=== PATIENT | female | born 1985 | race Caucasian/White ===

== ENCOUNTER 2018-01-22 11:29 | Emergency (ER) | payer MEDICAID, OTHER ==
[~2018-01-22] VITALS: Ht 167.6 cm; Wt 83.0 kg
[2018-01-22 11:32] VITALS: BP 135/76
[2018-01-22] MEDS ORDERED: DEXAMETHASONE 10 MG/ML VIAL IM ONE (12:15)
[2018-01-22] MEDS ORDERED: cefTRIAXone 1,000 MG in LIDOCAINE 1% ***ER ONLY *** 2.1 ML IM ONE (12:15)
[2018-01-22] MEDS ORDERED: ALBUTEROL SULFATE/IPRATROPIU 3 ML SOL IH ONE (12:15)
[2018-01-22] MEDS ORDERED: cefTRIAXone 1,000 MG VIAL ONE (12:47)
[2018-01-22] MEDS ORDERED: LIDOCAINE MPF 1% - **ER/OR** 5 ML ONE (12:47)
[2018-01-22 13:21] LABS: APPEARANCE,URINE SL CLOUDY (CLEAR); BILIRUBIN,URINE NEGATIVE (NEGATIVE); BLOOD, URINE TRACE-L (NEGATIVE); COLOR,URINE YELLOW (YELLOW); LEUKOCYTE ESTERASE ,URINE 2+ (NEGATIVE); NITRITE, URINE NEGATIVE (NEGATIVE); PH,URINE 6.5 (5.0-9.0); UGLUCOSE NEGATIVE (NEGATIVE)
[2018-01-22 13:24] LABS: BARBITURATE, URINE NEG. ng/ml (NEG <=200); BENZODIAZEPINE, URINE NEG. ng/mL (NEG <=200); CANNABINOID, URINE NEG. ng/mL (NEG <=50); COCAINE, URINE NEG. ng/mL (NEG <=300); OPIATE, URINE NEG. ng/mL (NEG <=2000); PHENCYCLIDINE SCREEN,URINE NEG. ng/mL (NEG <=25)
[2018-01-22 13:31] VITALS: BP 135/76
[2018-01-22 14:02] LABS: RBC,URINE 0-5 (RARE) /HPF (0-5); WBC,URINE 6-15 (FEW) /HPF (0-5)
== END 2018-01-22 13:27 | disposition home or self-care (01) ==
LOC: MED 11:29
DX: J45.901 Unspecified asthma with (acute) exacerbation (principal)
CPT/HCPCS: 80305; 81001; 81025; 87086; 94640; 96372; 99284; J0696; J1100; J2001; J7620

== ENCOUNTER 2018-11-10 23:50 | Emergency (ER) | payer OTHER ==
[~2018-11-10] VITALS: Ht 167.6 cm; Wt 83.9 kg
--- NOTE | 2018-11-10 23:50 | NUR ---
PT PRESENTS TO ED WITH LEFT FLANK PAIN 03/18. NON-RADIATING. NO N/V/D. NO CHANGE INURINATION. AFEBRILE. VSS. POSITIONED IN BED FOR COMFORT. ER MD AWARE. CONTINUE TO MONITOR.
[2018-11-10 23:55] VITALS: BP 130/79
--- NOTE | 2018-11-11 | NUR ---
PT AMBULATED TO BED 11. PROVIDED URINE.
[2018-11-11] MEDS ORDERED: KETOROLAC 30 MG/ML VIAL IM ONE (00:45)
[2018-11-11 01:00] LABS: BASOPHILS % (AUTO) 0.3 % (0.0-2.0); EOSINOPHILS # (AUTO) 0.1 K/uL (0-0.4); EOSINOPHILS % (AUTO) 0.6 % (0.0-4.0); HEMATOCRIT 39.6 % (36-48); HEMOGLOBIN 13.3 g/dL (12.0-16.0); LYMPHOCYTES # (AUTO) 1.9 K/uL (2.5-16.5); LYMPHOCYTES % (AUTO) 17.4 % (20.5-51.1); MEAN CORPUSCULAR HEMOGLOBIN 29 pg (27-31); MEAN CORPUSCULAR HGB CONC 34 g/dL (33-37); MEAN CORPUSCULAR VOLUME 86.7 fL (80-94); MONOCYTES # (AUTO) 0.6 K/uL (0.8-1.0); MONOCYTES % (AUTO) 5.7 % (1.7-9.3); NEUTROPHILS # (AUTO) 8.2 K/uL (1.8-7.7); PLATELET COUNT (AUTO) 245 K/uL (140-450); RED BLOOD CELL COUNT(AUTO) 4.56 MIL/uL (4.20-5.40); RED CELL DISTRIBUTION WIDTH 13.5 % (11.6-13.7); WHITE BLOOD COUNT (AUTO) 10.8 K/uL (4.8-10.8)
[2018-11-11 01:24] LABS: APPEARANCE,URINE SL CLOUDY (CLEAR); BILIRUBIN,URINE NEGATIVE (NEGATIVE); BLOOD, URINE 1+ (NEGATIVE); COLOR,URINE YELLOW (YELLOW); LEUKOCYTE ESTERASE ,URINE 2+ (NEGATIVE); NITRITE, URINE NEGATIVE (NEGATIVE); UGLUCOSE NEGATIVE (NEGATIVE)
[2018-11-11 01:25] LABS: ALBUMIN 3.6 g/dL (3.4-5.0); ANION GAP 12.4 (8-16); CARBON DIOXIDE 26.5 mmol/L (21-32); POTASSIUM 3.9 mmol/L (3.5-5.1); TOTAL BILIRUBIN 0.4 mg/dL (0.0-1.0)
[2018-11-11 01:37] LABS: RBC,URINE 0-5 /HPF (0-5)
[2018-11-11] MEDS ORDERED: HYDROcodone/APAP 5/325 MG 1 TAB TAB PO ONE (02:55)
[2018-11-11 04:55] VITALS: BP 103/59
--- NOTE | 2018-11-11 04:55 | NUR ---
DISCHARGE PAPERS PROVIDED. 0/10 PAIN. VSS. NO FLANK PAIN AT THIS TIME. PERSCRIBED KEFLEX, NAPROSYN, AND NORCO. SIDE EFFECTS EXPLAINED. PT VERBALIZED UNDERSTANDING OF DC INSTRUCTIONS. ALL QUESTIONS ANSWERED.
== END 2018-11-11 04:55 | disposition home or self-care (01) ==
LOC: MED 23:50
DX: N83.202 Unspecified ovarian cyst, left side (principal); J45.909 Unspecified asthma, uncomplicated
CPT/HCPCS: 36415; 74176; 76856; 80053; 81001; 81025; 85025; 87086; 93976; 96372; 99284; J1885; Q0092

== ENCOUNTER 2019-03-21 08:27 | Emergency (ER) | payer OTHER ==
[~2019-03-21] VITALS: Ht 167.6 cm; Wt 78.6 kg
[2019-03-21 08:33] VITALS: BP 130/73
[2019-03-21] MEDS ORDERED: ETON68IM2 ID (08:38)
--- NOTE | 2019-03-21 08:40 | NUR ---
Patient ambulated to bed 5. RN evaluating patient at bedside.
--- NOTE | 2019-03-21 08:40 | NUR ---
BIB SELF. AAO X4 C/O LEFT LOWER BACK PAIN AND LEFT FLANK PAIN X 4 DAYS. PT STS "UTI PAIN." PT STATES INCREASED URINARY URGENCY. PT DENIES BURNING PAIN UPON URINATION, FEVER, N/VD, ABDOMINAL PAIN. PT STATES 8/10 CONTINUOUS SHARP PAIN TO LEFT LOWER BACK AND LEFT FLANK. PT AMBULATED WITH STEADY GAIT.HOB UP. BED SIDE RAILS UP X1. ON LOW BED POSITION, LOCKED. ER TO EVALUATE PT.
--- NOTE | 2019-03-21 08:47 | NUR ---
Dr. De La O evaluating patient at bedside.
--- NOTE | 2019-03-21 09:07 | NUR ---
Dr. De La O re-evaluating patient at bedside.
[2019-03-21 09:20] VITALS: BP 123/87
--- NOTE | 2019-03-21 09:20 | NUR ---
Patient discharged with v/s stable. Written and verbal after care instructions given and explained. Patient alert, oriented and verbalized understanding of instructions. Ambulatory with steady gait. All questions addressed prior to discharge. ID band removed. Patient advised to follow up with PMD. Rx of CEPHALEXIN , NORCO & AMBIEN given. Patient educated on indication of medication including possible reaction and side effects. Opportunity to ask questions provided and answered.
== END 2019-03-21 09:20 | disposition home or self-care (01) ==
LOC: MED 08:27
DX: N39.0 Urinary tract infection, site not specified (principal); G47.00 Insomnia, unspecified; J45.909 Unspecified asthma, uncomplicated; Z79.899 Other long term (current) drug therapy
CPT/HCPCS: 81002; 81025; 99283

== ENCOUNTER 2019-09-23 18:52 | Emergency (ER) | payer OTHER ==
[~2019-09-23] VITALS: Ht 167.6 cm; Wt 74.8 kg
[~2019-09-23 18:52] MED LIST: ETON68IM2 ID
[2019-09-23 19:03] VITALS: BP 124/76
--- NOTE | 2019-09-23 19:03 | NUR ---
TO BED # 03 AMBULATORY
--- NOTE | 2019-09-23 19:28 | NUR ---
COLLECTED URINE AND SENT TO LAB.
[2019-09-23 19:34] LABS: APPEARANCE,URINE CLEAR (CLEAR); BILIRUBIN,URINE NEGATIVE (NEGATIVE); BLOOD, URINE 1+ (NEGATIVE); COLOR,URINE YELLOW (YELLOW); LEUKOCYTE ESTERASE ,URINE 1+ (NEGATIVE); NITRITE, URINE NEGATIVE (NEGATIVE); UGLUCOSE NEGATIVE (NEGATIVE)
--- NOTE | 2019-09-23 19:38 | NUR ---
33 Y/O FEMALE C/O RT FLANK PAIN X 2DAYS THAT COMES AND GOES. RATES PAIN 8/10 AND DESCRIBES IT STABBING. DENIES ANY V,D,DYSURIA, BLOOD IN URINE. PT SAID SHE WAS HERE 2 DAYS AGO AND SAID SHE HAS AN OVARIAN CYST. VSS. A & O X4. STEADY GAIT. NKA. PMH: ASTHMA, BRONCHITIS.
[2019-09-23] MEDS ORDERED: cefTRIAXone 1,000 MG VIAL ONE (21:00)
[2019-09-23 23:18] VITALS: BP 124/76
--- NOTE | 2019-09-23 23:18 | NUR ---
Patient discharged with v/s stable. Written and verbal after care instructions given and explained. Patient alert, oriented and verbalized understanding of instructions. Ambulatory with steady gait. All questions addressed prior to discharge. ID band removed. Patient advised to follow up with PMD. Rx of NAPROSYN AND MACROBID WAS given. Patient educated on indication of medication including possible reaction and side effects. Opportunity to ask questions provided and answered.
== END 2019-09-23 23:18 | disposition home or self-care (01) ==
LOC: MED 18:52
DX: N12 Tubulo-interstitial nephritis, not specified as acute or chronic (principal); J20.9 Acute bronchitis, unspecified; J45.909 Unspecified asthma, uncomplicated; Z79.899 Other long term (current) drug therapy
CPT/HCPCS: 36415; 81001; 81025; 87040; 87086; 96365; 99284; J0696

== ENCOUNTER 2020-12-16 19:48 | Emergency (ER) | payer OTHER ==
[~2020-12-16] VITALS: Ht 167.6 cm; Wt 78.9 kg
[2020-12-16 20:18] VITALS: BP 156/90
--- NOTE | 2020-12-16 20:23 | NUR ---
PT TAKEN TO BED 1
--- NOTE | 2020-12-16 20:30 | NUR ---
34/f BIB self complaining of left leg pain 10 since noon. Pt states she thinks it might be a bug bite. Pt describes pain as aching/stinging. Pt denies any n/v/d, fever, cough, sob. med hx: asthma, vertigo allergies: nka
[2020-12-16] MEDS ORDERED: IBUP-1842 PO (21:09)
[2020-12-16] MEDS ORDERED: IBUPROFEN 400 MG TAB PO ONE (21:10)
--- NOTE | 2020-12-16 21:21 | NUR ---
pt given instruction on proper use of crutches. crutches fitted to pt height and arm length. pt demonstrated safe use for approximately 40 feet, pt stated she felt comfortable with use.
[2020-12-16 21:27] VITALS: BP 156/90
--- NOTE | 2020-12-16 21:27 | NUR ---
Patient discharged with v/s stable. Written and verbal after care instructions given and explained. Patient alert, oriented and verbalized understanding of instructions. Ambulatory with use of crutches. All questions addressed prior to discharge. ID band removed. Patient advised to follow up with PMD. Rx of Motrin given. Patient educated on indication of medication including possible reaction and side effects. Opportunity to ask questions provided and answered.
== END 2020-12-16 21:27 | disposition home or self-care (01) ==
LOC: MED 19:48
DX: M79.662 Pain in left lower leg (principal); L29.9 Pruritus, unspecified; R03.0 Elevated blood-pressure reading, without diagnosis of hypertension; J45.909 Unspecified asthma, uncomplicated
CPT/HCPCS: 99283

== ENCOUNTER 2021-09-23 08:27 | Emergency (ER) | payer OTHER ==
[~2021-09-23] VITALS: Ht 167.6 cm; Wt 78.5 kg
[~2021-09-23 08:27] MED LIST changes: +IBUP-1842 PO
[2021-09-23 08:33] VITALS: BP 121/75
[2021-09-23] MEDS ORDERED: predniSONE 20 MG TAB PO ONE (08:50)
[2021-09-23] MEDS ORDERED: ALBUTEROL HFA MDI 90 MCG/ACTUATION 8 GM INH ONE (08:50)
--- NOTE | 2021-09-23 09:00 | NUR ---
34/F PRESENTS TO ED WITH C/O DRY COUGH, CHEST TIGHTNESS AND SORE THROAT. PATIENT HAS HISTORY OF ASTHMA AND STATES SHE RAN OUT OF HER INHALER TWO DAYS AGO, STATING SHE HAS BEEN HAVING INCREASINGLY MORE DIFFICULTY BREATHING. PATIENT STATES HER SYMPTOMS FEEL SAME HER ASTHMA EXACERBATIONS IN THE PAST. PATIENT DENIES FEVERS, CHILLS, N/V/D, BODYACHES OR RECENT SICK CONTACTS.
[2021-09-23] MEDS ORDERED: ALBU0.0912 IH (09:34)
[2021-09-23] MEDS ORDERED: PRED20TA5 PO (09:34)
[2021-09-23 09:41] VITALS: BP 124/62
--- NOTE | 2021-09-23 09:41 | NUR ---
Patient discharged with v/s stable. Written and verbal after care instructions given ASTHMA and explained. Patient alert, oriented and verbalized understanding of instructions. Ambulatory with steady gait. All questions addressed prior to discharge. ID band removed. Patient advised to follow up with PMD. Rx of ALBUTEROL AND PREDNISONE given. Patient educated on indication of medication including possible reaction and side effects. Opportunity to ask questions provided and answered.
== END 2021-09-23 09:41 | disposition home or self-care (01) ==
LOC: MED 08:27
DX: J45.901 Unspecified asthma with (acute) exacerbation (principal); Z79.899 Other long term (current) drug therapy; Z79.1 Long term (current) use of non-steroidal anti-inflammatories (NSAID); Z79.51 Long term (current) use of inhaled steroids
CPT/HCPCS: 94664; 99283; J7512